=== PATIENT | male | born 2000 | race African-American/Black ===

== ENCOUNTER 2022-09-17 11:18 | Inpatient (IN) | payer OTHER ==
[~2022-09-17] VITALS: Ht 167.6 cm; Wt 71.8 kg
[2022-09-17] MEDS: MORPHINE 4 MG/ML 1ML VIAL IV PRN ×2 (11:53→13:34)
[2022-09-17 12:48] LABS: RSV AMPLIFICATION NEGATIVE (NEGATIVE)
[2022-09-17] MEDS ORDERED: MORPHINE 4 MG/ML 1ML VIAL IV PRN (15:15)
[2022-09-17] MEDS ORDERED: MORPHINE 2 MG/ML 1ML VIAL IV PRN (15:15)
[2022-09-17] MEDS: NS 1,000 ML IV SCH (15:48)
[2022-09-17] MEDS ORDERED: ceFAZolin SOD 2 GM in IV 1 EA IV ONE (16:00)
[2022-09-17 17:00] VITALS: BP 120/74
[2022-09-17 17:14] LABS: INR 1.07; PROTHROMBIN TIME 14.1 SECONDS (12.5-14.5)
[2022-09-17 17:15] LABS: PARTIAL THROMBOPLASTIN TIME 20.5 SECONDS (24.8-34.2)
[2022-09-17 17:36] LABS: ALBUMIN 3.9 G/DL (3.2-5.2); ALKALINE PHOSPHATASE 83 U/L (46-116); ALT/SGPT 118 U/L (7.0-40); AST/SGOT 94 U/L (<34); BILIRUBIN,TOTAL 0.7 MG/DL (0.3-1.2); BLOOD UREA NITROGEN 12 MG/DL (9-23); CALCIUM LEVEL 8.6 MG/DL (8.5-10.1); CARBON DIOXIDE LEVEL 26 MMOL/L (20-31); CHLORIDE LEVEL 103 MMOL/L (98-107); GLUCOSE, FASTING 89 MG/DL (60-100); POTASSIUM SERUM 3.8 MMOL/L (3.5-5.1); SODIUM LEVEL 136 MMOL/L (136-145); TOTAL PROTEIN 6.5 G/DL (5.7-8.2)
[2022-09-17 18:05] LABS: HEMATOCRIT 42.7 % (42.0-52.0); HEMOGLOBIN 13.9 g/dl (13.5-17.5); MEAN CORPUSCULAR HEMOGLOBIN 27.8 pg (27.0-33.0); MEAN CORPUSCULAR HGB CONC 32.6 g/dl (32.0-36.5); MEAN CORPUSCULAR VOLUME 85.4 fl (80.0-96.0); PLATELET COUNT, AUTOMATED 194 10^3/uL (150-450); WHITE BLOOD COUNT 9.4 10^3/uL (4.0-10.0)
[2022-09-17 19:49] LABS: CREATININE FOR GFR 0.94 MG/DL (0.70-1.30); GLOMERULAR FILTRATION RATE > 60.0 (>60)
[2022-09-17 20:04] VITALS: BP 127/77
[2022-09-18] VITALS (7 sets, daily range): BP systolic 132–153; BP diastolic 83–90
[2022-09-18] MEDS: NS 1,000 ML IV SCH (01:08)
[2022-09-18 06:21] LABS: HEMATOCRIT 45.5 % (42.0-52.0); HEMOGLOBIN 14.8 g/dl (13.5-17.5); MEAN CORPUSCULAR HEMOGLOBIN 28.2 pg (27.0-33.0); MEAN CORPUSCULAR HGB CONC 32.5 g/dl (32.0-36.5); MEAN CORPUSCULAR VOLUME 86.8 fl (80.0-96.0); PLATELET COUNT, AUTOMATED 183 10^3/uL (150-450); RED BLOOD COUNT 5.24 10^6/uL (4.30-6.10); WHITE BLOOD COUNT 7.3 10^3/uL (4.0-10.0)
[2022-09-18] MEDS ORDERED: LIDOCAINE 2% 100MG/5ML SDV (FOR ANES.) As Ordered ONE (06:56)
[2022-09-18] MEDS ORDERED: propofoL 200 MG/20 ML VIAL As Ordered ONE (06:56)
[2022-09-18] MEDS ORDERED: ROCURONIUM BROMIDE 50MG/5ML VIAL As Ordered ONE (06:56)
[2022-09-18] MEDS ORDERED: SUGAMMADEX SODIUM 500 MG/5 ML VIAL (BRIDION) As Ordered ONE (06:56)
[2022-09-18] MEDS ORDERED: ONDANSETRON 4MG 2ML VIAL As Ordered ONE (06:57)
[2022-09-18] MEDS ORDERED: fentaNYL 250 MCG/5 ML INJECTION As Ordered ONE (07:01)
[2022-09-18] MEDS ORDERED: MIDAZOLAM INJ 2MG/2ML VIAL As Ordered ONE (07:01)
[2022-09-18 07:08] LABS: BLOOD UREA NITROGEN 11 MG/DL (9-23); CALCIUM LEVEL 8.3 MG/DL (8.5-10.1); CARBON DIOXIDE LEVEL 22 MMOL/L (20-31); CHLORIDE LEVEL 107 MMOL/L (98-107); CREATININE FOR GFR 1.03 MG/DL (0.70-1.30); GLOMERULAR FILTRATION RATE > 60.0 (>60); GLUCOSE, FASTING 108 MG/DL (60-100); POTASSIUM SERUM 4.6 MMOL/L (3.5-5.1); SODIUM LEVEL 137 MMOL/L (136-145)
[2022-09-18] MEDS ORDERED: ceFAZolin 2 GM/D5W 50 ML IV BAG As Ordered ONE (07:43)
[2022-09-18] MEDS ORDERED: ACETAMINOPHEN 1000MG 100ML IV BAG As Ordered ONE (07:57)
[2022-09-18 08:34] LABS: ALBUMIN 3.6 G/DL (3.2-5.2); ALKALINE PHOSPHATASE 77 U/L (46-116); ALT/SGPT 103 U/L (7.0-40); AST/SGOT 78 U/L (<34); BILIRUBIN,TOTAL 0.4 MG/DL (0.3-1.2); TOTAL PROTEIN 6.2 G/DL (5.7-8.2)
[2022-09-18] MEDS ORDERED: fentaNYL 100 MCG/2 ML INJECTION IV PRN (10:30)
[2022-09-18] MEDS ORDERED: LR 1,000 ML IV SCH (10:30)
[2022-09-18] MEDS ORDERED: METOCLOPRAMIDE INJ 10MG/2ML VIAL IV PRN (10:30)
[2022-09-18] MEDS ORDERED: ONDANSETRON 4MG 2ML VIAL IV PRN (10:30)
[2022-09-18] MEDS ORDERED: oxyCODONE 5MG TAB PO PRN (10:30)
[2022-09-18] MEDS ORDERED: ceFAZolin SOD 2 GM in IV 1 EA IV ONE (10:45)
[2022-09-18] MEDS: MORPHINE 2 MG/ML 1ML VIAL IV PRN ×2 (11:08→11:19)
[2022-09-18] MEDS ORDERED: HOME MED LIST COMPLETE! XX SCH (14:05)
[2022-09-18] MEDS ORDERED: ACET1TAB55 PO (15:38)
[2022-09-18] MEDS ORDERED: TRAM50TA2 PO (15:38)
== END 2022-09-18 16:42 | disposition home or self-care (01) | DRG 512 ==
LOC: EDBD 11:18 → M ED 11:18 → M ED INP 15:15 → M MSPAV 16:56
PROVIDERS: ADMIT Internal Medicine; ATTEND Internal Medicine
PROC: 0PSH04Z Reposition Right Radius with Internal Fixation Device, Open Approach (ICD-10-PCS; 2022-09-18)
PROC: BP1 Imaging, Non-Axial Upper Bones, Fluoroscopy (ICD-10-PCS; 2022-09-18)
PROC: 0PSK04Z Reposition Right Ulna with Internal Fixation Device, Open Approach (ICD-10-PCS; principal; 2022-09-18 07:30)
DX: S52.351A Displaced comminuted fracture of shaft of radius, right arm, initial encounter for closed fracture (principal); S52.251A Displaced comminuted fracture of shaft of ulna, right arm, initial encounter for closed fracture; W23.2XXA Caught, crushed, jammed or pinched between a moving and stationary object, initial encounter; Y92.9 Unspecified place or not applicable; F17.200 Nicotine dependence, unspecified, uncomplicated; Z20.822 Contact with and (suspected) exposure to COVID-19

== ENCOUNTER → 2022-09-26 | Outpatient (CLI) | payer OTHER ==
[~2022-09-26] MED LIST: ACET1TAB55 PO; TRAM50TA2 PO
== END ==
LOC: M SOG 08:29
PROVIDERS: ATTEND Physician Assistant
DX: Z47.89 Encounter for other orthopedic aftercare (principal); S52.301D Unspecified fracture of shaft of right radius, subsequent encounter for closed fracture with routine healing; S52.201D Unspecified fracture of shaft of right ulna, subsequent encounter for closed fracture with routine healing

== ENCOUNTER → 2022-10-03 | Outpatient (CLI) | payer OTHER | LOC: M PLAIMG 14:39 | PROVIDERS: ATTEND Orthopaedic Surgery Hand Surgery | DX: S52.301D Unspecified fracture of shaft of right radius, subsequent encounter for closed fracture with routine healing (principal); S52.201D Unspecified fracture of shaft of right ulna, subsequent encounter for closed fracture with routine healing; Z47.89 Encounter for other orthopedic aftercare ==

== ENCOUNTER 2024-02-26 17:07 | Emergency (ER) | payer OTHER ==
[~2024-02-26] VITALS: Ht 165.1 cm; Wt 66.0 kg
[2024-02-26] MEDS: TETRACAINE 0.5% OPHTH SOLN 4ML OD ONE (19:40)
[2024-02-26] MEDS: FLUORESCEIN OPHTH 1MG STRIP OD ONE (19:40)
[2024-02-26] MEDS ORDERED: ERYT5OIN25 OD (19:51)
[2024-02-26] MEDS: ERYTHROMYCIN OPHTH OINT OD ONE (19:53)
[2024-02-26 19:58] VITALS: BP 132/72; TEMP 97.8; O2SAT 99
== END 2024-02-26 19:59 | disposition home or self-care (01) ==
LOC: M ED 17:07
DX: T15.01XA Foreign body in cornea, right eye, initial encounter (principal)